=== PATIENT | female | born 1965 | race Hispanic/Latino ===

== ENCOUNTER 2020-12-05 09:35 | Outpatient (CLI) | payer OTHER ==
--- NOTE | 2020-12-05 10:35 | XRay Report ---
X-RAY SPINE LUMBOSACRAL 3 VIEWS INDICATION: Back pain COMPARISON: None available FINDINGS: Vertebral body heights are maintained. Alignment is maintained. There is mild degenerative disc disease at L4-L5 and L5-S1. Multilevel facet hypertrophy in the lumbar spine. No acute displaced fracture. Cholecystectomy clips noted. Additional clips are seen in the soft tissues of the abdomen. CONCLUSION: 1. No acute abnormality identified. 2. Degenerative changes as above. Signer Name: Ilan Grajeda MD Signed: 12/05/2020 10:30 AM Workstation Name: [id number]
== END 2020-12-05 09:36 | disposition home or self-care (01) ==
LOC: XRAY 09:35
PROVIDERS: ATTEND Internal Medicine
DX: M47.817 Spondylosis without myelopathy or radiculopathy, lumbosacral region (principal); Z90.49 Acquired absence of other specified parts of digestive tract
CPT/HCPCS: 72100